=== PATIENT | male | born 1965 | race Caucasian/White ===

== ENCOUNTER → 2018-04-08 09:31 | Outpatient (CLI) | payer OTHER, SELFPAY ==
[2018-04-08 10:06] LABS: Add Manual Diff / Slide Review NO; Basophils Percent Auto 0.6 % (0-2); Eosinophils Percent Auto 4.9 % (2-4); Hematocrit 38.6 % (41-53); Hemoglobin 12.6 g/dL (13.5-17.5); Lymphocytes Percent Auto 30.4 % (25-40); Mean Corpuscular HGB Conc 32.6 % (30-36); Mean Corpuscular Hemoglobin 25.6 PG (26-34); Mean Corpuscular Volume 78.6 fL (80-100); Monocytes Percent Auto 5.9 % (3-14); Neutrophils Absolute Auto 6000 /uL (3000-5900); Neutrophils Percent Auto 58.2 % (50-75); Platelet Count 309 X10^3/uL (150-400); Red Blood Cell Count 4.91 X10^6/uL (4.5-5.9); Red Cell Distribution Width 14.7 % (11.6-14.8); White Blood Cell Count 10.3 X10^3/uL (4.5-11.0)
[2018-04-08 10:20] LABS: Hemoglobin A1C% w Est Avg Glu 8.9 % (4.0-6.0)
[2018-04-08 10:37] LABS: Creatinine Urine Random 139.5 mg/dL
[2018-04-08 10:42] LABS: Alanine Aminotransferase 29 IU/L (21-72); Albumin 3.9 g/dL (3.5-5.0); Albumin Globulin Ratio 1.3 (1.0-2.8); Alkaline Phosphatase 50 U/L (38-126); Aspartate Aminotransferase 32 IU/L (17-59); BUN Creatinine Ratio 23.3 (6-22); Bilirubin Total 0.3 mg/dL (0.2-1.3); Cholesterol 139 mg/dL (140-199); Estimated Glomerular Filt Rate > 60.0 mL/min (>60); Globulin 3.1 g/dL (1.7-4.1); Glucose 114 mg/dL (70-100); HDL Cholesterol 35 mg/dL (40-60); HEMOLYSIS < 15 (0-50); LDL Cholesterol Calculated 83 mg/dL (<100); Sodium 141 mmol/L (137-145); Triglycerides 103 mg/dL (35-150)
[2018-04-08 11:05] LABS: Microalbumi Creatinin Ratio Ur 294.6 ug/mg CR (<30); Microalbumin Urine Random 41.1 mg/dL (0-1.6)
== END ==
PROVIDERS: PCP Family Medicine; Visit Provider Family Medicine
DX: I10 Essential (primary) hypertension (principal); E78.00 Pure hypercholesterolemia, unspecified; E11.9 Type 2 diabetes mellitus without complications; Z79.4 Long term (current) use of insulin
CPT/HCPCS: 36415; 80053; 80061; 82043; 82570; 83036; 85025

== ENCOUNTER 2019-01-29 14:26 | Emergency (ER) | payer OTHER, SELFPAY ==
[2019-01-29 14:37] VITALS: BP 171/70; PULSE 109; RESP 18; TEMP 38.8; O2SAT 97; BMI 44.6
--- NOTE | 2019-01-29 14:37 | DI.US.S_ITS ---
PROCEDURE: US PERIPH VENOUS LOW EXTREM RT INDICATIONS: PAIN, ERYTHEMA TECHNIQUE: Real-time imaging, as well as color and pulse Doppler interrogation, were performed of the lower extremity deep veins from the inguinal ligament to the popliteal fossa. COMPARISON: None. FINDINGS: The common femoral, femoral and popliteal veins are normally compressible, and free of intraluminal thrombus. Color and pulse Doppler demonstrate normal phasic intraluminal flow. There is normal augmentation response to distal compression maneuver. IMPRESSION: No evidence of deep vein thrombosis involving the right lower extremity. Dictated by: Chanell Villalobos MD, PhD on 01/29/2019 at 15:16 Approved by: Chanell Villalobos MD, PhD on 01/29/2019 at 15:16
--- NOTE | 2019-01-29 15:24 | ED.EXTPRO ---
HPI - Extremity Problem General Chief complaint: Extremity Problem,Nontraumatic Stated complaint: feels like there is a blood clot in lt leg,red,swe Time Seen by Provider: 01/29/19 15:24 Source: patient, family and old records reviewed Mode of arrival: ambulatory Limitations: no limitations History of Present Illness HPI Narrative: This is a 53-year-old comes to the emergency department complaint of redness, pain or discomfort in his right lower extremity starting yesterday patient states today he noted that he had fever he has here in the emergency department as well. Patient states the redness extends from his foot. Patient denies any cold cough or congestion. He does not recall having any injuries or cuts to his lower extremity. He states that the redness seems to be over kind of the dorsum of his foot a little bit mostly the ankle and up towards the knee. Patient states he initially thought he had a DVT he has followup some shortness of breath particularly with exertion. He does not have any chest pain pressure. Little bit nausea yesterday, no vomiting, no diarrhea or constipation. No urinary issues. Patient is a diabetic he states he is on insulin as well as medications. Also takes medication for blood pressure and cholesterol. Related Data Home Medications Medication Instructions Recorded Confirmed ResMed AirSense 10 CPAP #1 ea 01/05/19 01/21/19 aspirin 81 mg chewable tablet 81 mg PO DAILY 01/21/19 Previous Rx's Medication Instructions Recorded metformin [Glucophage XR] 2 tab PO BID #360 tab 02/26/18 Syringes: 1cc Insulin Syringes #100 each 04/16/18 with [place] blood glucose machine #1 ea 06/07/18 glipizide 20 mg PO QDAY #180 tab 08/09/18 bd inulin pen needles [id number] See Rx Instructions .ROUTE 09/07/18 .COMPLEX #100 hydrochlorothiazide 12.5 mg tablet 12.5 mg PO QDAY #90 tab 10/26/18 lisinopril 20 mg tablet 20 mg PO QDAY #30 tab 11/10/18 insulin aspart U- 100 100 unit/mL 30 unit SUBCUT TID #15 ml 11/29/18 subcutaneous pen Glucose: Test Strips #100 each 12/06/18 atorvastatin 40 mg tablet 40 mg PO HS #90 tab 01/21/19 ferrous sulfate 325 mg (65 mg 325 mg PO DAILY #180 tab 01/21/19 iron) tablet insulin glargine (U- 100) 100 60 unit SUBCUT BEDTIME #6 vial 01/21/19 unit/mL subcutaneous solution clindamycin HCl 300 mg PO QID #40 cap 01/29/19 Allergies Allergy/AdvReac Type Severity Reaction Status Date / Time No Known Drug Allergies Allergy Verified 01/21/19 10:22 Review of Systems Review of Systems ROS Unobtainable: All systems reviewed & are unremarkable except as noted in HPI and below Constitutional Denies chills, Reports fever(s), Denies lethargy and Denies weakness ENT Ears, Nose, Mouth, and Throat: Denies nasal congestion Cardiovascular Denies chest pain, Denies diaphoresis, Denies syncope, Denies irregular heart rhythm, Denies lightheadedness, Denies palpitations, Denies dyspnea, Reports dyspnea on exertion and Denies orthopnea Respiratory Denies chest congestion, Denies cough, Denies excessive phlegm production, Denies pain on inspiration, Denies dyspnea, Reports dyspnea on exertion and Denies wheezing Gastrointestinal Gastrointestinal: Denies abdominal pain, Denies change in bowel habits, Denies diarrhea, Reports nausea and Denies vomiting Genitourinary Denies hematuria, Denies dysuria, Denies flank pain and Denies urinary urgency Musculoskeletal Reports as per HPI, Denies arthralgias, Denies joint swelling, Denies muscle weakness, Reports numbness (Neuropathy both feet) and Reports other (Right leg pain) Integumentary/Breasts Reports erythema Neurologic Denies syncope, Reports numbness (Neuropathy both feet) and Denies weakness Endocrine Denies palpitations Allergic/Immunologic Denies wheezing [facility] Medical History Morbid obesity with BMI of 45.0-49.9, adult (Chronic) Obstructive sleep apnea syndrome (Chronic 11/28/16) Diabetes (Chronic 1989) Hypercholesterolemia (Chronic Unknown) Hypertension (Chronic 2015) Low testosterone (Chronic Unknown) Sleep apnea (Chronic 2009) Social History marital status: details: zac Garcia, lives in [place]; has 1 daughter remaining at home household members: spouse and children lives independently: Yes caregiver/support person: No housing: house occupational status: employed Previous occupational history: Environmental Services Smoking Status: Former smoker quit status: quit date established alcohol intake: current substance use type: does not use Social History marital status: details: zac Garcia, lives in [place]; has 1 daughter remaining at home household members: spouse and children lives independently: Yes caregiver/support person: No housing: house occupational status: employed Previous occupational history: Environmental Services Smoking Status: Former smoker quit status: quit date established alcohol intake: current substance use type: does not use Exam Narrative Exam Narrative: GENERAL: Alert and oriented x three, obese, well-appearing male in mild distress. Patient is warm to the touch. HEENT: Head normocephalic, atraumatic, EOMI, pupils reactive, face symmetric, moist mucous membranes NECK: Supple, full range of motion CARDIOVASCULAR: Regular rate and rhythm without murmurs, rubs or gallops. RESPIRATORY: Breath sounds equal bilaterally, no wheezes rales or rhonchi. No tachypnea no accessory muscle ABDOMEN: Soft, nontender. Normoactive bowel sounds all 4 quadrants. No guarding or rebound, rigidity, no mass : No CVA tenderness EXTREMITIES: Normal range of motion, no clubbing. Patient has redness with warmth to the right lower extremity and a half from the top of the foot. Patient has edema bilaterally but appears equal. The patient has touch to sensation but does state that he has decreased sensation in the lower feet in comparison to the rest of his legs. He states he has known neuropathy. He has full range of motion. He does have some onychomycosis on his toenails. Eyes cap refill less than 2 sec in all toes. Neurovascularly intact NEUROLOGICAL: Cranial nerves II through XII grossly intact. Moving all extremities SKIN: Warm, dry, no petechiae, no rashes or lesions. Initial Vital Signs Initial Vital Signs: Vital Signs Temperature 102 F H 01/29/19 14:37 Pulse Rate 109 H 01/29/19 14:37 Respiratory Rate 18 01/29/19 14:37 Blood Pressure 171/70 H 01/29/19 14:37 Pulse Oximetry 97 01/29/19 14:37 Course Orders Ordered: ED Orders 01/29/19 14:37 US periph venous low extrem rt Stat 01/29/19 15:50 Bilirubin Total Stat Complete Blood Count AUTO DIFF Stat Comprehensive Metabolic Panel Stat Lactate (Lactic Acid) Stat Partial Thromboplastin Time Stat Procalcitonin Stat Prothrombin Time INR Stat 01/29/19 16:50 Blood Culture Stat Discontinued Medications Acetaminophen (Tylenol) 975 mg PO NOW ONE Stop: 01/29/19 15:27 Last Admin: 01/29/19 16:01 Dose: 975 mg Clindamycin HCl (Cleocin) 300 mg PO NOW ONE Stop: 01/29/19 18:05 Last Admin: 01/29/19 18:12 Dose: 300 mg Clindamycin Phosphate (Cleocin) 900 mg in 50 mls @ 50 mls/hr IV NOW ONE Stop: 01/29/19 16:47 Last Infusion: 01/29/19 17:59 Dose: 0 mls/hr Admin: 01/29/19 16:01 Dose: 50 mls/hr Sodium Chloride (Normal Saline 0.9%) 1,000 mls @ 1,000 mls/hr IV BOLUS ONE Stop: 01/29/19 16:47 Last Admin: 01/29/19 16:01 Dose: 1,000 mls/hr Ibuprofen (Advil) 800 mg PO NOW ONE Stop: 01/29/19 15:27 Last Admin: 01/29/19 16:32 Dose: 800 mg Vital Signs - 8 hr 01/29/19 14:37 01/29/19 16:01 01/29/19 17:32 Temperature 102 F H 102 F H 97.8 F Pulse Rate 109 H Respiratory Rate 18 Blood Pressure 171/70 H Blood Pressure [Left Arm] Pulse Oximetry 97 01/29/19 17:48 01/29/19 17:59 Temperature 97.6 F Pulse Rate 91 H Respiratory Rate 16 Blood Pressure Blood Pressure [Left Arm] 102/57 L Pulse Oximetry 97 MDM - Extremity (Nontraumatic) Lab Data Attestation: I reviewed the patient's lab results. Result diagrams: 01/29/19 15:50 01/29/19 15:50 Lab Results 01/29/19 01/29/19 01/29/19 Range/Units 15:50 15:50 15:50 WBC 16.3 H (4.5-11.0) X10^3/uL RBC 4.97 (4.5-5.9) X10^6/uL Hgb 12.8 L (13.5-17.5) g/dL Hct 39.8 L (41-53) % MCV 80.1 (80-100) fL MCH 25.8 L (26-34) PG MCHC 32.2 (30-36) % RDW 15.0 H (11.6-14.8) % Plt Count 301 (150-400) X10^3/uL Neut % (Auto) 82.2 H (50-75) % Lymph % (Auto) 11.0 L (25-40) % [place] % (Auto) 5.6 (3-14) % Eos % (Auto) 0.5 L (2-4) % Baso % (Auto) 0.7 (0-2) % Neut # (Auto) 39127 H (9660-3508) /uL Lymph # (Auto) 1800 (4563-7966) /uL [place] # (Auto) 900 (0-900) /uL Eos # (Auto) 100 (0-450) /uL Baso # (Auto) 100 (0-100) /uL PT 12.0 (10.1-12.7) SECONDS INR 1.0 (0.9-1.3) APTT 34 (26.4-36.2) SECONDS Sodium Cancelled Potassium Cancelled Chloride Cancelled Carbon Dioxide Cancelled BUN Cancelled Creatinine Cancelled Estimated GFR Cancelled BUN/Creatinine Ratio Cancelled Glucose Cancelled Lactate (0.7-2.1) mmol/L Calcium Cancelled Total Bilirubin 0.8 (0.2-1.3) mg/dL AST (17-59) IU/L ALT (21-72) IU/L Alkaline Phosphatase (38-126) U/L Total Protein (6.3-8.2) g/dL Albumin (3.5-5.0) g/dL Globulin (1.7-4.1) g/dL Albumin/Globulin Ratio (1.0-2.8) Procalcitonin (<0.5) ng/mL Specimen Hemolysis Cancelled 01/29/19 01/29/19 01/29/19 Range/Units 15:50 15:50 15:50 WBC (4.5-11.0) X10^3/uL RBC (4.5-5.9) X10^6/uL Hgb (13.5-17.5) g/dL Hct (41-53) % MCV (80-100) fL MCH (26-34) PG MCHC (30-36) % RDW (11.6-14.8) % Plt Count (150-400) X10^3/uL Neut % (Auto) (50-75) % Lymph % (Auto) (25-40) % [place] % (Auto) (3-14) % Eos % (Auto) (2-4) % Baso % (Auto) (0-2) % Neut # (Auto) (4760-8025) /uL Lymph # (Auto) (2285-0643) /uL [place] # (Auto) (0-900) /uL Eos # (Auto) (0-450) /uL Baso # (Auto) (0-100) /uL PT (10.1-12.7) SECONDS INR (0.9-1.3) APTT (26.4-36.2) SECONDS Sodium 134 L Potassium 4.1 Chloride 95 L Carbon Dioxide 27 BUN 16 Creatinine 0.80 Estimated GFR > 60.0 BUN/Creatinine Ratio 20.0 Glucose 212 H Lactate 1.2 (0.7-2.1) mmol/L Calcium 9.2 Total Bilirubin 0.8 (0.2-1.3) mg/dL AST 27 (17-59) IU/L ALT 31 (21-72) IU/L Alkaline Phosphatase 58 (38-126) U/L Total Protein 8.3 H (6.3-8.2) g/dL Albumin 4.5 (3.5-5.0) g/dL Globulin 3.8 (1.7-4.1) g/dL Albumin/Globulin Ratio 1.2 (1.0-2.8) Procalcitonin 0.32 (<0.5) ng/mL Specimen Hemolysis Imaging Data Venous US: Radiologist's impression: [address] [address] Ultrasound Report Signed Patient: Ritchie Fermin JMR#: [id number] : 1965Acct:[id number] Age/Sex: 53 / MDate of Service: 01/29/19 Loc: ED Accession Number: [id number] Procedure: US periph venous low extrem rt Ordering Provider: Araceli Ulloa- PROCEDURE: US PERIPH VENOUS LOW EXTREM RT INDICATIONS: PAIN, ERYTHEMA TECHNIQUE: Real-time imaging, as well as color and pulse Doppler interrogation, were performed of the lower extremity deep veins from the inguinal ligament to the popliteal fossa. COMPARISON: None. FINDINGS: The common femoral, femoral and popliteal veins are normally compressible, and free of intraluminal thrombus. Color and pulse Doppler demonstrate normal phasic intraluminal flow. There is normal augmentation response to distal compression maneuver. IMPRESSION: No evidence of deep vein thrombosis involving the right lower extremity. Dictated by: Chanell Villalobos MD, PhD on 01/29/2019 at 15:16 Approved by: Chanell Villalobos MD, PhD on 01/29/2019 at 15:16 [facility] Narrative Medical decision making narrative: this is a 53-year-old who said his cellulitis and concerning changes for sepsis and his vital signs as well as lab work. Patient has cellulitis of his right lower extremity, he was started on clindamycin. Blood cultures are pending. Lactate is not elevated but patient had a fever initially elevated heart rate in the 90s and white count of 16. discussed with patient I would like to keep for admission he is pretty adamant that he would like to not be admitted. We discussed having him return in 12 hr for re-evaluation. Patient is open to doing this. He was given a dose of oral clindamycin to take at home tonight and told he needs to return if he is having any worsening symptoms or increasing redness over his lower extremity. He is with his he is well-known to us through the facility and does appear to be a responsible decision maker. We did discuss that if he gets any worse that although he does need to return immediately to be admitted. Discharge Plan Departure Patient Disposition: Home Clinical Impression: Cellulitis of leg, right Interventions: ED Discharge Assessment Last Done: 01/29/19 18:21 Instructions: DI for Cellulitis -- Adult Activity Restrictions/Additional Instructions: Return in 12 hours for recheck and repeat antibiotics and recheck. Continue clindamycin as prescribed. Take this until completely gone. Return to the ER for persistent fevers, increasing swelling, redness that is extending up your leg, nausea or vomiting if you are unable to keep your medications down, new shortness of breath or chest pain or other new or concerning symptoms. Prescriptions: New clindamycin HCl 300 mg capsule 300 mg PO QID Qty: 40 RF: 0 No Action metformin [Glucophage XR] 500 MG tablet extended release 24 hr 2 tab PO BID Qty: 360 RF: 6 Syringes: 1cc Insulin Syringes with [place] .Route .MEDSUPPLY Qty: 100 RF: 3 blood glucose machine Qty: 1 RF: 0 glipizide 10 mg tablet extended release 24hr 20 mg PO QDAY Qty: 180 RF: 6 bd inulin pen needles [id number] See Rx Instructions .ROUTE .COMPLEX Qty: 100 RF: 3 hydrochlorothiazide 12.5 mg tablet 12.5 mg PO QDAY Qty: 90 RF: 1 lisinopril 20 mg tablet 20 mg PO QDAY Qty: 30 RF: 5 insulin aspart U-100 [Novolog Flexpen U-100 Insulin] 100 unit/mL insulin pen 30 unit SUBCUT TID Qty: 15 RF: 5 Glucose: Test Strips .Route .MEDSUPPLY Qty: 100 RF: 3 Lantus U-100 Insulin 100 unit/mL solution 60 unit SUBCUT BEDTIME Qty: 6 RF: 11 aspirin 81 mg tablet,chewable 81 mg PO DAILY RF: 0 atorvastatin 40 mg tablet 40 mg PO HS Qty: 90 RF: 3 ferrous sulfate [Iron (ferrous sulfate)] 325 mg (65 mg iron) tablet 325 mg PO DAILY Qty: 180 RF: 6 ResMed AirSense 10 CPAP Qty: 1 RF: 0 Referrals: Rich Ledezma MD [Primary Care Provider] -
--- NOTE | 2019-01-29 15:56 | ED_ITS ---
HPI - Extremity Problem General Chief complaint: Extremity Problem,Nontraumatic Stated complaint: feels like there is a blood clot in lt leg,red,swe Time Seen by Provider: 01/29/19 15:24 Source: patient, family and old records reviewed Mode of arrival: ambulatory Limitations: no limitations History of Present Illness HPI Narrative: This is a 53-year-old comes to the emergency department complaint of redness, pain or discomfort in his right lower extremity starting yesterday patient states today he noted that he had fever he has here in the emergency department as well. Patient states the redness extends from his foot. Patient denies any cold cough or congestion. He does not recall having any injuries or cuts to his lower extremity. He states that the redness seems to be over kind of the dorsum of his foot a little bit mostly the ankle and up towards the knee. Patient states he initially thought he had a DVT he has followup some shortness of breath particularly with exertion. He does not have any chest pain pressure. Little bit nausea yesterday, no vomiting, no diarrhea or constipation. No uri nary issues. Patient is a diabetic he states he is on insulin as well as medications. Also takes medication for blood pressure and cholesterol. Related Data Home Medications Medication Instructions Recorded Confirmed ResMed AirSense 10 CPAP #1 ea 01/05/19 01/21/19 aspirin 81 mg chewable tablet 81 mg PO DAILY 01/21/19 Previous Rx's Medication Instructions Recorded metformin [Glucophage XR] 2 tab PO BID #360 tab 02/26/18 Syringes: 1cc Insulin Syringes #100 each 04/16/18 with [facility] blood glucose machine #1 ea 06/07/18 glipizide 20 mg PO QDAY #180 tab 08/09/18 bd inulin pen needles [id number] See Rx Instructions .ROUTE 09/07/18 .COMPLEX #100 hydrochlorothiazide 12.5 mg tablet 12.5 mg PO QDAY #90 tab 10/26/18 lisinopril 20 mg tablet 20 mg PO QDAY #30 tab 11/10/18 insulin aspart U- 100 100 unit/mL 30 unit SUBCUT TID #15 ml 11/29/18 subcutaneous pen Glucose: Test Strips #100 each 12/06/18 atorvastatin 40 mg tablet 40 mg PO HS #90 tab 01/21/19 ferrous sulfate 325 mg (65 mg 325 mg PO DAILY #180 tab 01/21/19 iron) tablet insulin glargine (U- 100) 100 60 unit SUBCUT BEDTIME #6 vial 01/21/19 unit/mL subcutaneous solution clindamycin HCl 300 mg PO QID #40 cap 01/29/19 Allergies Allergy/AdvReac Type Severity Reaction Status Date / Time No Known Drug Allergies Allergy Verified 01/21/19 10:22 Review of Systems Review of Systems ROS Unobtainable: All systems reviewed & are unremarkable except as noted in HPI and below Constitutional Denies chills, Reports fever(s), Denies lethargy and Denies weakness ENT Ears, Nose, Mouth, and Throat: Denies nasal congestion Cardiovascular Denies chest pain, Denies diaphoresis, Denies syncope, Denies irregular heart rhythm, Denies lightheadedness, Denies palpitations, Denies dyspnea, Reports dyspnea on exertion and Denies orthopnea Respiratory Denies chest congestion, Denies cough, Denies excessive phlegm production, Denies pain on inspiration, Denies dyspnea, Reports dyspnea on exertion and Denies wheezing Gastrointestinal Gastrointestinal: Denies abdominal pain, Denies change in bowel habits, Denies diarrhea, Reports nausea and Denies vomiting Genitourinary Denies hematuria, Denies dysuria, Denies flank pain and Denies urinary urgency Musculoskeletal Reports as per HPI, Denies arthralgias, Denies joint swelling, Denies muscle weakness, Reports numbness (Neuropathy both feet) and Reports other (Right leg pain) Integumentary/Breasts Reports erythema Neurologic Denies syncope, Reports numbness (Neuropathy both feet) and Denies weakness Endocrine Denies palpitations Allergic/Immunologic Denies wheezing [facility] Medical History Morbid obesity with BMI of 45.0-49.9, adult (Chronic) Obstructive sleep apnea syndrome (Chronic 11/28/16) Diabetes (Chronic 1989) Hypercholesterolemia (Chronic Unknown) Hypertension (Chronic 2015) Low testosterone (Chronic Unknown) Sleep apnea (Chronic 2009) Social History marital status: details: zac Garcia, lives in [place]; has 1 daughter remaining at home household members: spouse and children lives independently: Yes caregiver/support person: No housing: house occupational status: employed Previous occupational history: Environmental Services Smoking Status: Former smoker quit status: quit date established alcohol intake: current substance use type: does not use Social History marital status: details: zac Garcia, lives in [place]; has 1 daughter remaining at home household members: spouse and children lives independently: Yes caregiver/support person: No housing: house occupational status: employed Previous occupational history: Environmental Services Smoking Status: Former smoker quit status: quit date established alcohol intake: current substance use type: does not use Exam Narrative Exam Narrative: GENERAL: Alert and oriented x three, obese, well-appearing male in mild distress. Patient is warm to the touch. HEENT: Head normocephalic, atraumatic, EOMI, pupils reactive, face symmetric, moist mucous membranes NECK: Supple, full range of motion CARDIOVASCULAR: Regular rate and rhythm without murmurs, rubs or gallops. RESPIRATORY: Breath sounds equal bilaterally, no wheezes rales or rhonchi. No tachypnea no accessory muscle ABDOMEN: Soft, nontender. Normoactive bowel sounds all 4 quadrants. No guarding or rebound, rigidity, no mass : No CVA tenderness EXTREMITIES: Normal range of motion, no clubbing. Patient has redness with warmth to the right lower extremity and a half from the top of the foot. Patient has edema bilaterally but appears equal. The patient has touch to sensat ion but does state that he has decreased sensation in the lower feet in comparison to the rest of his legs. He states he has known neuropathy. He has full range of motion. He does have some onychomycosis on his toenails. Eyes cap refill less than 2 sec in all toes. Neurovascularly intact NEUROLOGICAL: Cranial nerves II through XII grossly intact. Moving all extremities SKIN: Warm, dry, no petechiae, no rashes or lesions. Initial Vital Signs Initial Vital Signs: Vital Signs Temperature 102 F H 01/29/19 14:37 Pulse Rate 109 H 01/29/19 14:37 Respiratory Rate 18 01/29/19 14:37 Blood Pressure 171/70 H 01/29/19 14:37 Pulse Oximetry 97 01/29/19 14:37 Course Orders Ordered: ED Orders 01/29/19 14:37 US periph venous low extrem rt Stat 01/29/19 15:50 Bilirubin Total Stat Complete Blood Count AUTO DIFF Stat Comprehensive Metabolic Panel Stat Lactate (Lactic Acid) Stat Partial Thromboplastin Time Stat Procalcitonin Stat Prothrombin Time INR Stat 01/29/19 16:50 Blood Culture Stat Discontinued Medications Acetaminophen (Tylenol) 975 mg PO NOW ONE Stop: 01/29/19 15:27 Last Admin: 01/29/19 16:01 Dose: 975 mg Clindamycin HCl (Cleocin) 300 mg PO NOW ONE Stop: 01/29/19 18:05 Last Admin: 01/29/19 18:12 Dose: 300 mg Clindamycin Phosphate (Cleocin) 900 mg in 50 mls @ 50 mls/hr IV NOW ONE Stop: 01/29/19 16:47 Last Infusion: 01/29/19 17:59 Dose: 0 mls/hr Admin: 01/29/19 16:01 Dose: 50 mls/hr Sodium Chloride (Normal Saline 0.9%) 1,000 mls @ 1,000 mls/hr IV BOLUS ONE Stop: 01/29/19 16:47 Last Admin: 01/29/19 16:01 Dose: 1,000 mls/hr Ibuprofen (Advil) 800 mg PO NOW ONE Stop: 01/29/19 15:27 Last Admin: 01/29/19 16:32 Dose: 800 mg Vital Signs - 8 hr 01/29/19 14:37 01/29/19 16:01 01/29/19 17:32 Temperature 102 F H 102 F H 97.8 F Pulse Rate 109 H Respiratory Rate 18 Blood Pressure 171/70 H Blood Pressure [Left Arm] Pulse Oximetry 97 01/29/19 17:48 01/29/19 17:59 Temperature 97.6 F Pulse Rate 91 H Respiratory Rate 16 Blood Pressure Blood Pressure [Left Arm] 102/57 L Pulse Oximetry 97 MDM - Extremity (Nontraumatic) Lab Data Attestation: I reviewed the patient's lab results. Result diagrams: 01/29/19 15:50 01/29/19 15:50 Lab Results 01/29/19 01/29/19 01/29/19 Range/Units 15:50 15:50 15:50 WBC 16.3 H (4.5-11.0) X10^3/uL RBC 4.97 (4.5-5.9) X10^6/uL Hgb 12.8 L (13.5-17.5) g/dL Hct 39.8 L (41-53) % MCV 80.1 (80-100) fL MCH 25.8 L (26-34) PG MCHC 32.2 (30-36) % RDW 15.0 H (11.6-14.8) % Plt Count 301 (150-400) X10^3/uL Neut % (Auto) 82.2 H (50-75) % Lymph % (Auto) 11.0 L (25-40) % [place] % (Auto) 5.6 (3-14) % Eos % (Auto) 0.5 L (2-4) % Baso % (Auto) 0.7 (0-2) % Neut # (Auto) 87126 H (4920-6871) /uL Lymph # (Auto) 1800 (3665-9704) /uL [place] # (Auto) 900 (0-900) /uL Eos # (Auto) 100 (0-450) /uL Baso # (Auto) 100 (0-100) /uL PT 12.0 (10.1-12.7) SECONDS INR 1.0 (0.9-1.3) APTT 34 (26.4-36.2) SECONDS Sodium Cancelled Potassium Cancelled Chloride Cancelled Carbon Dioxide Cancelled BUN Cancelled Creatinine Cancelled Estimated GFR Cancelled BUN/Creatinine Ratio Cancelled Glucose Cancelled Lactate (0.7-2.1) mmol/L Calcium Cancelled Total Bilirubin 0.8 (0.2-1.3) mg/dL AST (17-59) IU/L ALT (21-72) IU/L Alkaline Phosphatase (38-126) U/L Total Protein (6.3-8.2) g/dL Albumin (3.5-5.0) g/dL Globulin (1.7-4.1) g/dL Albumin/Globulin Ratio (1.0-2.8) Procalcitonin (<0.5) ng/mL Specimen Hemolysis Cancelled 01/29/19 01/29/19 01/29/19 Range/Units 15:50 15:50 15:50 WBC (4.5-11.0) X10^3/uL RBC (4.5-5.9) X10^6/uL Hgb (13.5-17.5) g/dL Hct (41-53) % MCV (80-100) fL MCH (26-34) PG MCHC (30-36) % RDW (11.6-14.8) % Plt Count (150-400) X10^3/uL Neut % (Auto) (50-75) % Lymph % (Auto) (25-40) % Oldham % (Auto) (3-14) % Eos % (Auto) (2-4) % Baso % (Auto) (0-2) % Neut # (Auto) (2319-3506) /uL Lymph # (Auto) (8931-7322) /uL Oldham # (Auto) (0-900) /uL Eos # (Auto) (0-450) /uL Baso # (Auto) (0-100) /uL PT (10.1-12.7) SECONDS INR (0.9-1.3) APTT (26.4-36.2) SECONDS Sodium 134 L Potassium 4.1 Chloride 95 L Carbon Dioxide 27 BUN 16 Creatinine 0.80 Estimated GFR > 60.0 BUN/Creatinine Ratio 20.0 Glucose 212 H Lactate 1.2 (0.7-2.1) mmol/L Calcium 9.2 Total Bilirubin 0.8 (0.2-1.3) mg/dL AST 27 (17-59) IU/L ALT 31 (21-72) IU/L Alkaline Phosphatase 58 (38-126) U/L Total Protein 8.3 H (6.3-8.2) g/dL Albumin 4.5 (3.5-5.0) g/dL Globulin 3.8 (1.7-4.1) g/dL Albumin/Globulin Ratio 1.2 (1.0-2.8) Procalcitonin 0.32 (<0.5) ng/mL Specimen Hemolysis Imaging Data Venous US: Radiologist's impression: [address] [address] Ultrasound Report Signed Patient: Ritchie Fermin JMR#: [id number] : 1965Acct:[id number] Age/Sex: 53 / MDate of Service: 01/29/19 Loc: ED Accession Number: [id number] Procedure: US periph venous low extrem rt Ordering Provider: Araceli Ulloa- PROCEDURE: US PERIPH VENOUS LOW EXTREM RT INDICATIONS: PAIN, ERYTHEMA TECHNIQUE: Real-time imaging, as well as color and pulse Doppler interrogation, were performed of the lower extremity deep veins from the inguinal ligament to the popliteal fossa. COMPARISON: None. FINDINGS: The common femoral, femoral and popliteal veins are normally compressible, and free of intraluminal thrombus. Color and pulse Doppler demonstrate normal phasic intraluminal flow. There is normal augmentation response to distal compression maneuver. IMPRESSION: No evidence of deep vein thrombosis involving the right lower extremity. Dictated by: Chanell Villalobos MD, PhD on 01/29/2019 at 15:16 Approved by: Chanell Villalobos MD, PhD on 01/29/2019 at 15:16 [facility] Narrative Medical decision making narrative: this is a 53-year-old who said his cellulitis and concerning changes for sepsis and his vital signs as well as lab work. Patient has cellulitis of his right lower extremity, he was started on clindamycin. Blood cultures are pending. Lactate is not elevated but patient had a fever initially elevated heart rate in the 90s and white count of 16. discussed with patient I would like to keep for admission he is pretty adamant that he would like to not be admitted. We discussed having him return in 12 hr for re-evaluation. Patient is open to doing this. He was given a dose of oral clindamycin to take at home tonight and told he needs to return if he is having any worsening symptoms or increasing redness over his lower extremity. He is with his he is well-known to us through the facility and does appear to be a responsible decision maker. We did discuss that if he gets any worse that al though he does need to return immediately to be admitted. Discharge Plan Departure Patient Disposition: Home Clinical Impression: Cellulitis of leg, right Interventions: ED Discharge Assessment Last Done: 01/29/19 18:21 Instructions: DI for Cellulitis -- Adult Activity Restrictions/Additional Instructions: Return in 12 hours for recheck and repeat antibiotics and recheck. Continue clindamycin as prescribed. Take this until completely gone. Return to the ER for persistent fevers, increasing swelling, redness that is extending up your leg, nausea or vomiting if you are unable to keep your medications down, new shortness of breath or chest pain or other new or concerning symptoms. Prescriptions: New clindamycin HCl 300 mg capsule 300 mg PO QID Qty: 40 RF: 0 No Action metformin [Glucophage XR] 500 MG tablet extended release 24 hr 2 tab PO BID Qty: 360 RF: 6 Syringes: 1cc Insulin Syringes with [facility] .Route .MEDSUPPLY Qty: 100 RF: 3 blood glucose machine Qty: 1 RF: 0 glipizide 10 mg tablet extended release 24hr 20 mg PO QDAY Qty: 180 RF: 6 bd inulin pen needles [id number] See Rx Instructions .ROUTE .COMPLEX Qty: 100 RF: 3 hydrochlorothiazide 12.5 mg tablet 12.5 mg PO QDAY Qty: 90 RF: 1 lisinopril 20 mg tablet 20 mg PO QDAY Qty: 30 RF: 5 insulin aspart U-100 [Novolog Flexpen U-100 Insulin] 100 unit/mL insulin pen 30 unit SUBCUT TID Qty: 15 RF: 5 Glucose: Test Strips .Route .MEDSUPPLY Qty: 100 RF: 3 Lantus U-100 Insulin 100 unit/mL solution 60 unit SUBCUT BEDTIME Qty: 6 RF: 11 aspirin 81 mg tablet,chewable 81 mg PO DAILY RF: 0 atorvastatin 40 mg tablet 40 mg PO HS Qty: 90 RF: 3 ferrous sulfate [Iron (ferrous sulfate)] 325 mg (65 mg iron) tablet 325 mg PO DAILY Qty: 180 RF: 6 ResMed AirSense 10 CPAP Qty: 1 RF: 0 Referrals: Rich Ledezma MD [Primary Care Provider] -
[2019-01-29 16:01] VITALS: TEMP 38.8
[2019-01-29] MEDS: CLINDAMYCIN 900 MG/50 ML PIGGYBACK 50 MG IV (16:01)
[2019-01-29] MEDS: ACETAMINOPHEN 325 MG TABLET 975 MG PO (16:01)
[2019-01-29] MEDS: SODIUM CHLORIDE 0.9% 1,000 ML 1000 ML IV (16:01)
[2019-01-29 16:05] LABS: Add Manual Diff / Slide Review NO; Basophils Absolute Auto 100 /uL (0-100); Basophils Percent Auto 0.7 % (0-2); Eosinophils Absolute Auto 100 /uL (0-450); Eosinophils Percent Auto 0.5 % (2-4); Hematocrit 39.8 % (41-53); Hemoglobin 12.8 g/dL (13.5-17.5); Lymphocytes Absolute Auto 1800 /uL (1100-4500); Mean Corpuscular HGB Conc 32.2 % (30-36); Mean Corpuscular Hemoglobin 25.8 PG (26-34); Mean Corpuscular Volume 80.1 fL (80-100); Monocytes Absolute Auto 900 /uL (0-900); Monocytes Percent Auto 5.6 % (3-14); Neutrophils Absolute Auto 13400 /uL (1500-7000); Neutrophils Percent Auto 82.2 % (50-75); Platelet Count 301 X10^3/uL (150-400); Red Blood Cell Count 4.97 X10^6/uL (4.5-5.9); White Blood Cell Count 16.3 X10^3/uL (4.5-11.0)
[2019-01-29 16:15] LABS: PTT Partial Thromboplastin Tim 34 SECONDS (26.4-36.2)
[2019-01-29 16:16] LABS: Lactate (Lactic Acid) 1.2 mmol/L (0.7-2.1)
[2019-01-29 16:17] LABS: Bilirubin Total 0.8 mg/dL (0.2-1.3)
[2019-01-29 16:21] LABS: Alanine Aminotransferase 31 IU/L (21-72); Albumin 4.5 g/dL (3.5-5.0); Albumin Globulin Ratio 1.2 (1.0-2.8); Alkaline Phosphatase 58 U/L (38-126); Aspartate Aminotransferase 27 IU/L (17-59); Bilirubin Total 0.8 mg/dL (0.2-1.3); Blood Urea Nitrogen 16 mg/dL (9-20); Calcium 9.2 mg/dL (8.4-10.2); Carbon Dioxide 27 mmol/L (22-32); Chloride 95 mmol/L (98-107); Estimated Glomerular Filt Rate > 60.0 mL/min (>60); Globulin 3.8 g/dL (1.7-4.1); Glucose 212 mg/dL (70-100); HEMOLYSIS < 15 (0-50); Potassium 4.1 mmol/L (3.4-5.1); Sodium 134 mmol/L (137-145); Total Protein 8.3 g/dL (6.3-8.2)
[2019-01-29] MEDS: IBUPROFEN 400 MG TABLET 800 MG PO (16:32)
[2019-01-29 16:46] LABS: Procalcitonin 0.32 ng/mL (<0.5)
[2019-01-29 17:32] VITALS: TEMP 36.6
[2019-01-29 17:48] VITALS: BP 102/57; PULSE 91; RESP 16; O2SAT 97
[2019-01-29 17:59] VITALS: TEMP 36.4
[2019-01-29] MEDS: CLINDAMYCIN 150 MG CAPSULE 300 MG PO (18:12)
--- NOTE | 2019-01-29 18:12 | PC.NURSE ---
Per provider administer Oral ABX for patient to take at home at bedtime.
--- NOTE | 2019-03-02 13:33 | PC.NURSE ---
NS 1L Bolus completed at 1815. No complications
== END 2019-01-29 18:22 | disposition home or self-care (01) ==
PROVIDERS: Emergency Provider Emergency Medicine; Family Provider Family Medicine; PCP Student in an Organized Health Care Education/Training Program
DX: L03.115 Cellulitis of right lower limb (principal)
CPT/HCPCS: 36415; 36591; 80053; 82247; 83605; 84145; 85025; 85610; 85730; 87040; 93971; 96365; 96366; 99283; 99284

== ENCOUNTER 2019-01-30 07:03 | Emergency (ER) | payer OTHER, SELFPAY ==
[2019-01-30 07:38] VITALS: BP 144/73; PULSE 97; RESP 16; TEMP 36.3; O2SAT 98
--- NOTE | 2019-01-30 08:42 | ED.SKABFB ---
HPI - Skin/Abscess/Foreign Bdy General Chief complaint: Skin/Abscess/Foreign Body Stated complaint: returns for second IV antiobitics Time Seen by Provider: 01/30/19 07:21 Source: patient Mode of arrival: ambulatory Limitations: no limitations History of Present Illness HPI narrative: Patient returns to the emergency department for recheck and repeat dose of IV antibiotics after being seen yesterday for right lower extremity cellulitis. Patient states that his leg does not hurt as much as it did, and he has had no fevers overnight. There has been no progression of the redness past the skin markings made last night. He patient states that overall, he feels better. No systemic symptoms of illness. No other complaints this time. Patient was given IV antibiotics last night, and given oral clindamycin to take at home. Related Data Home Medications Medication Instructions Recorded Confirmed ResMed AirSense 10 CPAP #1 ea 01/05/19 01/21/19 aspirin 81 mg chewable tablet 81 mg PO DAILY 01/21/19 Previous Rx's Medication Instructions Recorded Syringes: 1cc Insulin Syringes #100 each 04/16/18 with [facility] blood glucose machine #1 ea 06/07/18 bd inulin pen needles [id number] See Rx Instructions .ROUTE 09/07/18 .COMPLEX #100 hydrochlorothiazide 12.5 mg tablet 12.5 mg PO QDAY #90 tab 10/26/18 insulin aspart U- 100 100 unit/mL 30 unit SUBCUT TID #15 ml 11/29/18 subcutaneous pen Glucose: Test Strips #100 each 12/06/18 atorvastatin 40 mg tablet 40 mg PO HS #90 tab 01/21/19 ferrous sulfate 325 mg (65 mg 325 mg PO DAILY #180 tab 01/21/19 iron) tablet insulin glargine (U- 100) 100 60 unit SUBCUT BEDTIME #6 vial 01/21/19 unit/mL subcutaneous solution clindamycin HCl 300 mg PO QID #40 cap 01/29/19 glipizide ER 10 mg tablet, 20 mg PO QDAY #180 tab 01/30/19 extended release 24 hr lisinopril 20 mg tablet 20 mg PO QDAY #90 tab 01/30/19 metformin ER 500 mg 1,000 mg PO BID #360 tab 01/30/19 tablet,extended release 24 hr Allergies Allergy/AdvReac Type Severity Reaction Status Date / Time No Known Drug Allergies Allergy Verified 01/30/19 20:04 Review of Systems Constitutional Denies chills, Denies fever(s), Denies lethargy and Denies weakness Eyes Denies change in vision, Denies eye discharge, Denies irritation and Denies loss of vision ENT Ears, Nose, Mouth, and Throat: Denies change in voice, Denies neck pain and Denies sore throat Cardiovascular Denies chest pain, Denies irregular heart rhythm, Denies lightheadedness, Denies palpitations, Denies dyspnea, Denies dyspnea on exertion and Denies orthopnea Respiratory Denies cough, Denies dyspnea, Denies dyspnea on exertion and Denies wheezing Gastrointestinal Gastrointestinal: Denies abdominal pain, Denies change in bowel habits, Denies diarrhea, Denies nausea and Denies vomiting Genitourinary Denies hematuria, Denies flank pain, Denies urinary incontinence and Denies urinary urgency Musculoskeletal Denies neck pain Comments: Swelling right lower extremity. Integumentary/Breasts Denies pruritus, Reports erythema, Denies rash and Denies wounds Neurologic Denies confusion, Denies loss of vision and Denies weakness Psychiatric Denies anxiety, Denies confusion, Denies depression, Denies homicidal ideation and Denies suicidal ideation Endocrine Denies palpitations Hematologic/Lymphatic Denies easy bruising Allergic/Immunologic Denies wheezing [facility] Medical History Morbid obesity with BMI of 45.0-49.9, adult (Chronic) Obstructive sleep apnea syndrome (Chronic 11/28/16) Diabetes (Chronic 1989) Hypercholesterolemia (Chronic Unknown) Hypertension (Chronic 2015) Low testosterone (Chronic Unknown) Sleep apnea (Chronic 2009) Social History marital status: details: zac Garcia, lives in [place]; has 1 daughter remaining at home household members: spouse and children lives independently: Yes caregiver/support person: No housing: house occupational status: employed Previous occupational history: Environmental Services Smoking Status: Former smoker quit status: quit date established alcohol intake: current substance use type: does not use Exam Initial Vital Signs Initial Vital Signs: Vital Signs Temperature 97.3 F L 01/30/19 07:38 Pulse Rate 97 H 01/30/19 07:38 Respiratory Rate 16 01/30/19 07:38 Blood Pressure 144/73 H 01/30/19 07:38 Pulse Oximetry 98 01/30/19 07:38 Const General: cooperative and well developed Nutritional Appearance: well nourished Orientation: alert, awake, oriented x3 and not confused [facility] Head: normocephalic and atraumatic Ears: external ears normal Nose: external nose normal and No nasal discharge Face and sinus: face symmetric and No dry mucous membranes Mouth: moist mucous membranes Teeth and gingiva: dentition normal Eyes General: appearance normal, both eyes and all related structures Eyelids: eyelids normal Conjunctivae: conjunctivae normal Sclera: sclerae normal Pupils: PERRL EOM: EOM intact bilaterally Neck Neck: normal visual inspection, trachea midline, No lymphadenopathy, No midline deformity and No JVD Lymphatic: No lymphedema Chest Chest: normal inspection of the chest Resp Effort & Inspection: normal respiratory effort, able to speak in complete sentences, no respiratory distress and no use of accessory muscles Auscultation: clear to auscultation bilaterally, no rales, no rhonchi and no wheezes Cardio Rate: regular rate Rhythm: regular rhythm Heart Sounds: no click, no gallops, no murmurs and no rubs Pulses: normal peripheral pulses GI Inspection: distended (Obese) Back/Spine/Pelvis Back: No CVA tenderness Cervical Spine: cervical ROM normal and No pain with cervical ROM Thoracic/Lumbar Spine: thoracic and lumbar spine normal to inspection Skin General: no rashes or lesions noted, No jaundice and No petechiae Other: Intense erythema noted of right lower extremity, mainly involving mid right tibial area and distally. Patient has intact distal pulses. A skin marking has been drawn around the proximal portion the patient's right lower leg. Erythema does not extend proximal to this line, and begins about 2 cm distal to the line. Intense erythema is about 4 cm distal to the line. No areas of induration or fluctuance are noted. No drainage. No wounds. No crepitus. Neuro General: alert, oriented x3, gait normal and no focal motor deficits Speech: speech normal Extrem General: full ROM, no clubbing, cyanosis or edema, no pedal edema and no calf tenderness Psych Appearance: well kempt Mental Status: mental status grossly normal Attitude: cooperative Thought Content: normal and suicidality Judgment: judgment good Course Course Narrative: The patient had overall improved since yesterday, and there is no evidence of progression of the cellulitis. I did order a dose of vancomycin for the patient here in the emergency department. We have discussed that he will most likely need 1 or 2 more doses of IV antibiotics, and then, as long as improvement continues, he can finish his course orally at home. Orders Ordered: Discontinued Medications Vancomycin HCl 1,500 mg/ (Sodium Chloride) 500 mls @ 333.333 mls/hr IV NOW ONE Stop: 01/30/19 08:43 Last Admin: 01/30/19 09:00 Dose: 333.333 mls/hr Vital Signs - 8 hr 01/30/19 07:38 Temperature 97.3 F L Pulse Rate 97 H Respiratory Rate 16 Blood Pressure 144/73 H Pulse Oximetry 98 MDM - Skin/Abscess/Foreign Bdy Medical Records Attestation: I reviewed the patient's medical records. Discharge Plan Departure Patient Disposition: Home Clinical Impression: Cellulitis of leg, right Discharge Date/Time: 01/30/19 11:17 Interventions: ED Discharge Assessment Last Done: 01/30/19 11:10 Instructions: DI for Cellulitis -- Adult Activity Restrictions/Additional Instructions: Please return to the emergency department at about 8:00 p.m. for a recheck and repeat dose of IV antibiotics. Please continue your home medications. Prescriptions: No Action Syringes: 1cc Insulin Syringes with [facility] .Route .MEDSUPPLY Qty: 100 RF: 3 blood glucose machine Qty: 1 RF: 0 bd inulin pen needles [id number] See Rx Instructions .ROUTE .COMPLEX Qty: 100 RF: 3 hydrochlorothiazide 12.5 mg tablet 12.5 mg PO QDAY Qty: 90 RF: 1 insulin aspart U-100 [Novolog Flexpen U-100 Insulin] 100 unit/mL insulin pen 30 unit SUBCUT TID Qty: 15 RF: 5 Glucose: Test Strips .Route .MEDSUPPLY Qty: 100 RF: 3 Lantus U-100 Insulin 100 unit/mL solution 60 unit SUBCUT BEDTIME Qty: 6 RF: 11 aspirin 81 mg tablet,chewable 81 mg PO DAILY RF: 0 atorvastatin 40 mg tablet 40 mg PO HS Qty: 90 RF: 3 ferrous sulfate [Iron (ferrous sulfate)] 325 mg (65 mg iron) tablet 325 mg PO DAILY Qty: 180 RF: 6 metformin [Glucophage XR] 500 mg tablet extended release 24 hr 1,000 mg PO BID Qty: 360 RF: 1 lisinopril 20 mg tablet 20 mg PO QDAY Qty: 90 RF: 1 glipizide 10 mg tablet extended release 24hr 20 mg PO QDAY Qty: 180 RF: 1 clindamycin HCl 300 mg capsule 300 mg PO QID Qty: 40 RF: 0 ResMed AirSense 10 CPAP Qty: 1 RF: 0 Referrals: Rich Ledezma MD [Primary Care Provider] - Stand Alone Forms: Work Release Note
[2019-01-30] MEDS: VANCOMYCIN 1,500 MG in SODIUM CHLORIDE 0.9% 500 ML 333.333 ML IV (09:00)
[2019-01-30 11:10] VITALS: BP 167/84; PULSE 98; RESP 17; TEMP 36.7; O2SAT 99
--- NOTE | 2019-03-03 14:24 | PC.NURSE ---
Vancomyacin infusion took 95 minutes to complete
== END 2019-01-30 11:17 | disposition home or self-care (01) ==
PROVIDERS: Emergency Provider Emergency Medicine; Family Provider Family Medicine; PCP Student in an Organized Health Care Education/Training Program
DX: L03.115 Cellulitis of right lower limb (principal)
CPT/HCPCS: 96365; 96366; 99282; 99284

== ENCOUNTER 2019-01-30 19:49 | Inpatient (IN) | payer OTHER, SELFPAY ==
[2019-01-30 20:04] VITALS: BP 168/82; PULSE 102; RESP 16; TEMP 38.4; O2SAT 99; BMI 44.6
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
[2019-01-30 21:47] LABS: Add Manual Diff / Slide Review NO; Basophils Absolute Auto 0 /uL (0-100); Basophils Percent Auto 0.4 % (0-2); Eosinophils Absolute Auto 100 /uL (0-450); Hematocrit 34.8 % (41-53); Hemoglobin 11.2 g/dL (13.5-17.5); Lymphocytes Absolute Auto 1400 /uL (1100-4500); Lymphocytes Percent Auto 10.1 % (25-40); Mean Corpuscular HGB Conc 32.2 % (30-36); Mean Corpuscular Hemoglobin 25.7 PG (26-34); Mean Corpuscular Volume 79.8 fL (80-100); Monocytes Absolute Auto 700 /uL (0-900); Monocytes Percent Auto 5.2 % (3-14); Neutrophils Absolute Auto 11500 /uL (1500-7000); Neutrophils Percent Auto 83.3 % (50-75); Platelet Count 270 X10^3/uL (150-400); Red Blood Cell Count 4.37 X10^6/uL (4.5-5.9); White Blood Cell Count 13.8 X10^3/uL (4.5-11.0)
[2019-01-30 21:52] LABS: Lactate (Lactic Acid) 1.1 mmol/L (0.7-2.1)
[2019-01-30 21:55] LABS: Alanine Aminotransferase 28 IU/L (21-72); Albumin Globulin Ratio 1.2 (1.0-2.8); Alkaline Phosphatase 65 U/L (38-126); Aspartate Aminotransferase 36 IU/L (17-59); Bilirubin Total 0.7 mg/dL (0.2-1.3); Blood Urea Nitrogen 14 mg/dL (9-20); Calcium 8.7 mg/dL (8.4-10.2); Carbon Dioxide 25 mmol/L (22-32); Chloride 98 mmol/L (98-107); Estimated Glomerular Filt Rate > 60.0 mL/min (>60); Globulin 3.4 g/dL (1.7-4.1); Glucose 285 mg/dL (70-100); HEMOLYSIS < 15 (0-50); Potassium 4.2 mmol/L (3.4-5.1); Sodium 134 mmol/L (137-145); Total Protein 7.4 g/dL (6.3-8.2)
[2019-01-30] MEDS: VANCOMYCIN 1,500 MG in SODIUM CHLORIDE 0.9% 500 ML 333.333 ML IV (22:04)
[2019-01-30 22:10] LABS: Procalcitonin 0.29 ng/mL (<0.5)
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
[2019-01-30 22:36] VITALS: BP 171/85; PULSE 108; RESP 18; O2SAT 97
[2019-01-30] MEDS: ONDANSETRON 4 MG/2 ML INJ IV (22:38)
[2019-01-30 22:48] VITALS: BMI 47.9
[2019-01-30 22:54] VITALS: BP 159/81; PULSE 106; RESP 20; TEMP 36.9; O2SAT 96
[2019-01-30 23:00] VITALS: O2SAT 96
--- NOTE | 2019-01-30 23:00 | P.HP_ITS ---
History of Present Illness Date Patient Seen: 01/30/19 Time Patient Seen: 22:50 Chief complaint: return for antibiotics Narrative: 53-year-old male with history of diabetes type 2 obesity hypertension presents with continuing cellulitis. He was seen here yesterday in the evening and given a dose of IV antibiotics another dose this morning and came back tonight for more antibiotics but then was noted to be febrile and has seems to have had progression of the erythema in the lower extremity. The redness started on Thursday is seemed to be sudden he did not note 1 particular area that was the initial point. When he finally noticed it the entire right lower extremity from the knee down was involved. He denies any injury to the area. No previous history of cellulitis no pre previous history of MRSA. He has relatively uncontrolled diabetes. No previous history of vascular disease. No history of diabetic ulcers. Patient History Medical History Morbid obesity with BMI of 45.0-49.9, adult (Chronic) Obstructive sleep apnea syndrome (Chronic 11/28/16) Diabetes (Chronic 1989) Hypercholesterolemia (Chronic Unknown) Hypertension (Chronic 2015) Low testosterone (Chronic Unknown) Sleep apnea (Chronic 2009) Social History marital status: details: zac Garcia, lives in [place]; has 1 daughter remaining at home household members: spouse and children lives independently: Yes caregiver/support person: No housing: house occupational status: employed Previous occupational history: Environmental Services Smoking Status: Former smoker quit status: quit date established alcohol intake: current substance use type: does not use Family & Social History Social History: household members spouse,children lives independently Yes caregiver/support person No Safety & Behavioral: Feels Safe in Current Yes Environment Tobacco & Substance use: Smoking Status Former smoker alcohol intake current alcohol intake frequency 0-2 drinks per day Substance Use Type does not use Meds Home Medications Medication Instructions Recorded Confirmed Type hydrochlorothiazide 12.5 mg tablet 12.5 mg PO QDAY #90 tab 10/26/18 01/30/19 Rx insulin aspart U- 100 100 unit/mL 30 unit SUBCUT TID #15 ml 11/29/18 01/30/19 Rx subcutaneous pen aspirin 81 mg chewable tablet 81 mg PO DAILY 01/21/19 01/30/19 History atorvastatin 40 mg tablet 40 mg PO HS #90 tab 01/21/19 01/30/19 Rx ferrous sulfate 325 mg (65 mg 325 mg PO DAILY #180 tab 01/21/19 01/30/19 Rx iron) tablet insulin glargine (U- 100) 100 60 unit SUBCUT BEDTIME #6 vial 01/21/19 01/30/19 Rx unit/mL subcutaneous solution glipizide ER 10 mg tablet, 20 mg PO QDAY #180 tab 01/30/19 01/30/19 Rx extended release 24 hr lisinopril 20 mg tablet 20 mg PO QDAY #90 tab 01/30/19 01/30/19 Rx metformin ER 500 mg 1,000 mg PO BID #360 tab 01/30/19 01/30/19 Rx tablet,extended release 24 hr Allergies Allergy/AdvReac Type Severity Reaction Status Date / Time No Known Drug Allergies Allergy Verified 01/30/19 20:04 Review of Systems Constitutional Constitutional: Reports system reviewed and no additional complaints, except as documented Eyes Eyes: Reports system reviewed; no additional complaints, except as documented ENT Ears, Nose, Mouth, and Throat: Yes system reviewed; no additional complaints, except as documented Cardiovascular Cardiovascular: Denies chest pain at rest and Denies chest pain with activity Respiratory Respiratory: Reports system reviewed and no additional complaints, except as documented Gastrointestinal Gastrointestinal: Reports system reviewed and no additional complaints, except as documented Genitourinary Genitourinary: Reports system reviewed and no additional complaints, except as documented Musculoskeletal Musculoskeletal: Reports system reviewed; no additional complaints, except as documented Integumentary/Breasts Skin/Breast: Reports erythema and Reports rash Neurologic Neurologic: Reports system reviewed and no additional complaints, except as documented Psychiatric Psychiatric: Reports system reviewed and no additional complaints, except as documented Endocrine Endocrine: Reports system reviewed and no additional complaints, except as documented Hematologic/Lymphatic Hematologic/Lymphatic: Reports system reviewed and no additional complaints, except as documented Allergic/Immunologic Allergic/Immunologic: Reports system reviewed and no additional complaints, except as documented Exam Vital Signs (past 8 hours): - 01/30/19 20:04 01/30/19 22:36 Temperature 101.1 F H Pulse Rate 102 H 108 H Respiratory Rate 16 18 Blood Pressure 168/82 H Blood Pressure [Left Arm] 171/85 H Pulse Oximetry 99 97 Oxygen Delivery Method Room Air Narrative Exam Narrative: Pleasant middle-aged male obese no acute distress sitting up on the side of the bed. He is a little bit tachycardic fever up to 101 earlier in the ER visit this evening. HEENT exam unremarkable oropharynx clear Neck is supple no bruits no JVD Lungs Clear to auscultation Heart regular rhythm Abdomen obese nontender Pulses 2+ and symmetrical Lower extremities the right lower extremity 2+ edema with diffuse erythema from the foot up to just below the knee warmth also noted. The left lower extremity fairly normal there is no chronic stasis dermatitis fairly normal color. Neuro exam awake alert oriented x3 no focal deficits Objective Labs Result Diagrams: 01/30/19 21:34 01/30/19 21:34 Labs: Laboratory Results - last 24 hr 01/30/19 01/30/19 01/30/19 21:34 21:34 21:34 WBC 13.8 H RBC 4.37 L Hgb 11.2 L Hct 34.8 L MCV 79.8 L MCH 25.7 L MCHC 32.2 RDW 15.0 H Plt Count 270 Neut % (Auto) 83.3 H Lymph % (Auto) 10.1 L [place] % (Auto) 5.2 Eos % (Auto) 1.0 L Baso % (Auto) 0.4 Neut # (Auto) 14346 H Lymph # (Auto) 1400 [place] # (Auto) 700 Eos # (Auto) 100 Baso # (Auto) 0 Sodium 134 L Potassium 4.2 Chloride 98 Carbon Dioxide 25 BUN 14 Creatinine 0.70 Estimated GFR > 60.0 BUN/Creatinine Ratio 20.0 Glucose 285 H Lactate Calcium 8.7 Total Bilirubin 0.7 AST 36 ALT 28 Alkaline Phosphatase 65 Total Protein 7.4 Albumin 4.0 Globulin 3.4 Albumin/Globulin Ratio 1.2 Procalcitonin 0.29 01/30/19 21:34 WBC RBC Hgb Hct MCV MCH MCHC RDW Plt Count Neut % (Auto) Lymph % (Auto) [place] % (Auto) Eos % (Auto) Baso % (Auto) Neut # (Auto) Lymph # (Auto) [place] # (Auto) Eos # (Auto) Baso # (Auto) Sodium Potassium Chloride Carbon Dioxide BUN Creatinine Estimated GFR BUN/Creatinine Ratio Glucose Lactate 1.1 Calcium Total Bilirubin AST ALT Alkaline Phosphatase Total Protein Albumin Globulin Albumin/Globulin Ratio Procalcitonin Assessment & Plan Assessment & Plan narrative: One. Right lower extremity cellulitis started Thursday he has received 3 doses of IV antibiotics he has persistent fever does not seem to be improving here initially. I think at this point a admission to observation status is warranted with aggressive IV antibiotic treatment. I think he is at low risk for MRSA with and would treat him for methicillin sensitive Staph aureus or strep infection with cefazolin IV at 2 g q.8 hours. I would anticipate that he should respond favorably and within 24 hr may be able to be discharged home if there is clinical improvement and if the fever goes away. White count was 13 today it was 15 yesterday. So there is a mild white count elevation. If he fails to respond to the initial antibiotics then he would would probably warrant inpatient admission and longer treatment. But that decision can be made tomorrow upon rounding. 2. Diabetes type 2 relatively poor control continue insulin regimen he was recently placed on a sliding scale as needed supplemental insulin in addition to his long-acting and mealtime insulin. Plan to continue with insulin. I will hold the glipizide for now I really do not think that is actually needed at this point with the high doses of insulin he is on is probably not getting any benefit from the glipizide and would be in favor of probably stopping that. If he needs better control of his diabetes would suggest something to help with i nsulin sensitivity such as Actos. He is on metformin that will continue. Dietary changes weight loss and increased activity are recommended also. 3. Hypertension somewhat high today plan to resume his oral meds and watch this carefully. Time Spent With Patient Time with patient: Greater than 35 minutes
[2019-01-31] VITALS (15 sets, daily range): BP systolic 122–154; BP diastolic 56–81; PULSE 78–96; RESP 16–19; TEMP 36.8–37.4; O2SAT 97–99
[2019-01-31] MEDS: ATORVASTATIN 20 MG TABLET 40 MG PO ×2 (00:21→20:23)
[2019-01-31] MEDS: INSULIN GLARGINE 60 UNIT 60 EACH SUBCUT ×2 (00:26→20:23)
[2019-01-31] MEDS: ENOXAPARIN 40 MG/0.4 ML SYRINGE SUBCUT ×3 (00:30→20:22)
[2019-01-31] MEDS: ACETAMINOPHEN 325 MG TABLET 650 MG PO ×2 (00:33→20:27)
[2019-01-31] MEDS: CEFAZOLIN 2 GM/100 ML FROZ.PIGGY IV ×4 (00:33→22:21)
--- NOTE | 2019-01-31 08:42 | CM.DANOTE ---
Discharge Planning/Care Management DCP: assessment: case received, EMR reviewed and met with pt. Introduced self and role. Pt is a 53 year old male who admitted to care of hospitalist team late last night. PCP: Dr. Rich Ledezma, just established with him. Payer: [employer] Adam Pt notes he had hoped to d/c today as per Dr. Reed's plan but the leg is really not looking very good yet. He is aware that Dr. Moore will be seeing him today. Will check in and follow prn. Freq: Status: Active Protocol: Document 01/31/19 08:40 ITV (Rec: 01/31/19 08:41 ITV [id number]) Discharge Planning Assessment Advance Directives? No Advance Directives on File No History Provided By Patient Medical Record Prior Living Arrangements House Household Members spouse children Independent with ADL's Yes Is patient alert and oriented? Yes Whiteboard Updated in Patient Room with Yes name and ext. # of Clothing Worker Review Status In Process Next Review Type Continued Stay Review
[2019-01-31] MEDS: ASPIRIN 81 MG TAB PO (09:57)
[2019-01-31] MEDS: LISINOPRIL 20 MG TABLET PO (09:57)
[2019-01-31] MEDS: METFORMIN XR 500 MG TABLET 1000 MG PO ×2 (09:58→17:15)
[2019-01-31] MEDS: hydroCHLOROthiazide 12.5 MG CAPSULE PO (09:59)
[2019-01-31] MEDS: INSULIN ASPART 100 UNIT/ML INSULN PEN 30 UNIT SUBCUT ×3 (10:09→17:11)
[2019-01-31] MEDS: INSULIN ASPART 100 UNIT/ML INSULN PEN SUBCUT ×3 (10:09→17:12)
[2019-01-31] MEDS: INFLUENZA VACCINE 0.5 ML SYRINGE IM (12:38)
[2019-01-31 14:34] LABS: Hemoglobin A1C% w Est Avg Glu 9.3 % (4.0-6.0)
--- NOTE | 2019-01-31 15:38 | PC.NURSE ---
Am shift Pt is a/o x3, up to BR with SBA. Denies pain. Erythema improved and receeding at start of shift. Enc elevation of BLE, Pt not 100% cooperative with this. Numerous visitors. No pain. PP+ present. At end of shift, noted increased erythema to LLE as well. Legs elevated. Call light in reach.
--- NOTE | 2019-01-31 16:49 | PM.PN.1 ---
Subjective Date Patient Seen: 01/31/19 Interval history: The patient is a 53-year-old male with morbid obesity, obstructive sleep apnea, right lower extremity cellulitis who was admitted to the hospital for progressive swelling and redness of the right lower extremity. Area of his leg has been marked. He has had significant improvement over night in the lower extremity cellulitis. Unfortunately he continues to have significant lower extremity edema in addition to redness. Patient feels like symptoms are improving. Exam Vital Signs (past 8 hours): - 01/31/19 09:57 01/31/19 12:00 01/31/19 15:40 Temperature 98.3 F Pulse Rate 78 90 Respiratory Rate 18 Blood Pressure 122/66 154/67 H Pulse Oximetry 98 99 01/31/19 15:45 01/31/19 16:30 Temperature 99.4 F 98.3 F Pulse Rate 92 H Respiratory Rate 19 Blood Pressure 152/78 H Pulse Oximetry 98 Oxygen Delivery Method Room Air Oxygen Flow Rate 0 Narrative Exam Narrative: Pleasant male resting comfortably in no acute distress lungs: Clear to auscultation cardiac exam: Regular rate and rhythm normal S1 and S2 abdomen: Soft and nontender extremities: 2+ bilateral edema. Right lower extremity with significant erythema from the ankle up to 2 in below the knee. The area is warm and indurated. There is no area of skin breakdown. There appears to be some improvement compared to yesterday. Objective Labs Result Diagrams: 01/30/19 21:34 01/30/19 21:34 Labs: Laboratory Results - last 24 hr 01/30/19 01/30/19 01/30/19 21:34 21:34 21:34 WBC 13.8 H RBC 4.37 L Hgb 11.2 L Hct 34.8 L MCV 79.8 L MCH 25.7 L MCHC 32.2 RDW 15.0 H Plt Count 270 Neut % (Auto) 83.3 H Lymph % (Auto) 10.1 L [place] % (Auto) 5.2 Eos % (Auto) 1.0 L Baso % (Auto) 0.4 Neut # (Auto) 60461 H Lymph # (Auto) 1400 [place] # (Auto) 700 Eos # (Auto) 100 Baso # (Auto) 0 Sodium 134 L Potassium 4.2 Chloride 98 Carbon Dioxide 25 BUN 14 Creatinine 0.70 Estimated GFR > 60.0 BUN/Creatinine Ratio 20.0 Glucose 285 H Hemoglobin A1c Lactate Calcium 8.7 Total Bilirubin 0.7 AST 36 ALT 28 Alkaline Phosphatase 65 Total Protein 7.4 Albumin 4.0 Globulin 3.4 Albumin/Globulin Ratio 1.2 Procalcitonin 0.29 01/30/19 01/31/19 21:34 14:10 WBC RBC Hgb Hct MCV MCH MCHC RDW Plt Count Neut % (Auto) Lymph % (Auto) [place] % (Auto) Eos % (Auto) Baso % (Auto) Neut # (Auto) Lymph # (Auto) [place] # (Auto) Eos # (Auto) Baso # (Auto) Sodium Potassium Chloride Carbon Dioxide BUN Creatinine Estimated GFR BUN/Creatinine Ratio Glucose Hemoglobin A1c 9.3 H Lactate 1.1 Calcium Total Bilirubin AST ALT Alkaline Phosphatase Total Protein Albumin Globulin Albumin/Globulin Ratio Procalcitonin Assessment & Plan (1) Cellulitis of leg, right: Problem details: Cellulitis of the right lower extremity, present on admission patient appears to be making significant improvement with current therapy. Continue antibiotics and leg elevation at this time. Current visit: Yes Status: Acute (2) Iron deficiency anemia: Problem details: Iron deficiency anemia, present on admission will continue the iron sulfate. Current visit: No Status: Chronic (3) Morbid obesity with BMI of 45.0-49.9, adult: Current visit: No Status: Chronic (4) Essential hypertension: Problem details: Essential hypertension, chronic, present on admission will continue his usual outpatient Treatment Current visit: No Status: Chronic (5) Pure hypercholesterolemia: Problem details: will continue statin Current visit: No Status: Chronic Quality VTE Deep Vein Thrombosis/Pulmonary Embolism Present on Admission: Yes
--- NOTE | 2019-01-31 18:47 | PC.NURSE ---
Addendum entered by Elva Tineo R.N. 01/31/19 20:59: pt has been borderline tachycardic, has spiked low grade fevers. denies pain that he had initially had when he was first battling the cellulites. redness has crept below low line on right foot. does not look like it has gone out of the boundary by the knee, but is approaching it in areas. Original Note: 1500- assumed care of pt from outgoing shift. Pt awake and alert. pt uses call light. pt has family at bedside. cooperative and compliant with nursing staff. PT self in room. uses his own shoes (good support and gripped bottom). leg looks about the same as it did last night. redness slightly outside of foot margin (closer to toes now than it was last night). will continue to monitor pt for safety.
[2019-01-31] MEDS: SODIUM CHLORIDE 0.9% FLUSH 10 ML IV ×2 (20:27→22:22)
[2019-01-31] MEDS: SODIUM CHLORIDE 0.9% 250 ML 21 ML IV (22:22)
[2019-02-01] VITALS (8 sets, daily range): BP systolic 143–154; BP diastolic 66–80; PULSE 83–97; RESP 16–19; TEMP 36.4–37.6; O2SAT 96–99
[2019-02-01] MEDS: CEFAZOLIN 2 GM/100 ML FROZ.PIGGY IV ×3 (06:50→22:28)
[2019-02-01] MEDS: LISINOPRIL 20 MG TABLET PO (08:26)
[2019-02-01] MEDS: METFORMIN XR 500 MG TABLET 1000 MG PO (08:26)
[2019-02-01] MEDS: hydroCHLOROthiazide 12.5 MG CAPSULE PO (08:26)
[2019-02-01] MEDS: SODIUM CHLORIDE 0.9% FLUSH 10 ML IV ×2 (08:27→21:03)
[2019-02-01] MEDS: ASPIRIN 81 MG TAB PO (08:27)
[2019-02-01] MEDS: ENOXAPARIN 40 MG/0.4 ML SYRINGE SUBCUT ×2 (08:27→20:59)
[2019-02-01] MEDS: INSULIN ASPART 100 UNIT/ML INSULN PEN 30 UNIT SUBCUT ×3 (08:28→17:31)
[2019-02-01] MEDS: INSULIN ASPART 100 UNIT/ML INSULN PEN SUBCUT ×4 (08:29→21:00)
[2019-02-01] MEDS: INSULIN ASPART 100 UNIT/ML 10ML VIAL 32 UNIT SUBCUT (10:01)
--- NOTE | 2019-02-01 13:22 | P.PN_ITS ---
Subjective Date Patient Seen: 02/01/19 Interval history: the patient is a 53-year-old male with a history of type 2 diabetes on insulin which is poorly controlled, with hypertension hyperlipidemia as well. He is admitted to the hospital for cellulitis involving the right lower extremity. The patient has been ambulating significantly since he has been here. The right lower extremity continues to be somewhat indurated warm and red. He also has evidence of venous insufficiency in both lower extremities. He has some redness on the left leg as well. There are no exudates. There are no open lesions. Despite ambulating his right lower extremity appears to be improving somewhat. Patient had hemoglobin A1c which came back at 9.3. He currently is being managed with 60 units of Lantus glipizide and metformin. Medications will be adjusted to improve his diabetic control. Exam Vital Signs (past 8 hours): - 02/01/19 07:46 02/01/19 11:00 Temperature 97.8 F 97.5 F L Pulse Rate 83 88 Respiratory Rate 16 16 Blood Pressure 147/79 H 148/75 H Pulse Oximetry 98 98 Oxygen Delivery Method Room Air Oxygen Flow Rate 0 Narrative Exam Narrative: Pleasant obese male in no obvious distress lungs: Clear to auscultation cardiac exam: Regular rate rhythm normal S1-S2 abdomen: Soft nontender nondistended extremities: Right lower extremity beefy red and warm. Mild improvement in lower extremity cellulitis. There is some erythema in the left lower extremity as well. Objective Labs Result Diagrams: 01/30/19 21:34 01/30/19 21:34 Labs: Laboratory Results - last 24 hr 01/31/19 14:10 Hemoglobin A1c 9.3 H Assessment & Plan (1) Cellulitis of leg, right: Problem details: Cellulitis of the right lower extremity, present on admission patient appears to be making significant improvement with current therapy. Continue antibiotics and leg elevation at this time. Current visit: Yes Status: Acute (2) Type 2 diabetes mellitus without complication, with long-term current use of insulin: Problem details: Patient's metformin will be discontinued. Will continue to increase his insu rip as his hemoglobin A1c is elevated and glucose control is suboptimal. Current visit: No Status: Chronic (3) Pure hypercholesterolemia: Problem details: will continue statin Current visit: No Status: Chronic (4) Essential hypertension: Problem details: Essential hypertension, chronic, present on admission will continue his usual outpatient Treatment Current visit: No Status: Chronic (5) Morbid obesity with BMI of 45.0-49.9, adult: Current visit: No Status: Chronic (6) Obstructive sleep apnea syndrome: Problem details: Chronic present on admission no further therapy indicated at this time. Current visit: No Status: Chronic Assessment & Plan narrative: Hopefully with leg elevation and continued antibiotic treatment the patient be switched to oral agents tomorrow. Quality VTE Deep Vein Thrombosis/Pulmonary Embolism Present on Admission: Yes
[2019-02-01] MEDS: ATORVASTATIN 20 MG TABLET 40 MG PO (20:59)
[2019-02-01] MEDS: INSULIN GLARGINE 100 UNIT/ML 3ML PEN 35 UNIT SUBCUT (21:00)
--- NOTE | 2019-02-01 23:05 | PC.NURSE ---
loyd barfield- pt awake and alert. cooperative with care. legs are less swollen. but reddened. less hot to touch. swelling. redness to right ankle is greater today than it was yesterday. pt agrees. handouts given to pt about cellulites and venous stasis. Pt appreciative. pt uses call [place]. self in room, ambulates steady gait to br. pt uses call zuleta. will continue to monitor pt for safety. discussed new lantus regimen and pt compliant and eager to try something different.
[2019-02-02 00:43] VITALS: BP 138/75; PULSE 97; RESP 20; TEMP 36.3; O2SAT 96
[2019-02-02 01:00] VITALS: O2SAT 96
[2019-02-02 04:31] VITALS: BP 121/62; PULSE 85; RESP 20; TEMP 36.6; O2SAT 100
[2019-02-02] MEDS: CEFAZOLIN 2 GM/100 ML FROZ.PIGGY IV (06:47)
[2019-02-02] MEDS: INSULIN ASPART 100 UNIT/ML INSULN PEN SUBCUT ×2 (07:52→11:59)
[2019-02-02] MEDS: INSULIN ASPART 100 UNIT/ML INSULN PEN 30 UNIT SUBCUT ×2 (07:52→11:57)
[2019-02-02] MEDS: INSULIN GLARGINE 100 UNIT/ML 3ML PEN 35 UNIT SUBCUT (07:53)
[2019-02-02 07:55] VITALS: BP 144/78; PULSE 78; RESP 16; TEMP 36.6; O2SAT 99
[2019-02-02] MEDS: hydroCHLOROthiazide 12.5 MG CAPSULE PO (07:55)
[2019-02-02] MEDS: LISINOPRIL 20 MG TABLET PO (07:55)
[2019-02-02] MEDS: ASPIRIN 81 MG TAB PO (07:55)
[2019-02-02] MEDS: ENOXAPARIN 40 MG/0.4 ML SYRINGE SUBCUT (07:55)
--- NOTE | 2019-02-02 11:33 | PM.DS.1 ---
History of Present Illness Date Patient Seen: 02/02/19 Chief complaint: return for antibiotics Narrative: 53-year-old male with history of diabetes type 2 obesity hypertension presents with continuing cellulitis. He was seen here yesterday in the evening and given a dose of IV antibiotics another dose this morning and came back tonight for more antibiotics but then was noted to be febrile and has seems to have had progression of the erythema in the lower extremity. The redness started on Thursday is seemed to be sudden he did not note 1 particular area that was the initial point. When he finally noticed it the entire right lower extremity from the knee down was involved. He denies any injury to the area. No previous history of cellulitis no pre previous history of MRSA. He has relatively uncontrolled diabetes. No previous history of vascular disease. No history of diabetic ulcers. Discharge Providers Date of admission: 01/30/19 22:31 Discharge Date: 02/02/19 Primary care physician: Rich Ledezma MD Consults: 01/30/19 22:45 Consult to Respiratory Therapy Evaluate & Treat Comment: CPAP at night patient has home machine Physician Instructions: Evaluate and treat Discharge provider: Geovanna Moore MD Summary Discharge Diagnosis: Lower Extremity Cellulitis, present on admission Bilateral Venous Insufficiency,present on admission Morbid obesity Type 2 diabetes Mellitus, poorly controlled Hyperlipidemia Hypertension hyponatremia, mild Hospital Course: Patient was admitted to the hospital for inpatient treatment of cellulitis. He had started oral antibiotics but failed outpatient treatment. His right leg was swollen, warm, and red. He was treated with Cefazolin with excellent response. Patient had no difficulty with the antibiotics, he had no shortness of breath, nausea or pain. As his legs were improving nicely he will be switched to oral antibiotics and discharged home. The patient will follow up with next week. Patient was discharged home. REcommend follow up with wound care regarding venous insufficiency as an outpatient. Status at Discharge Cognitive/behavioral status at discharge: oriented Functional status at discharge: independent ambulation Overall status at discharge: patient is back to baseline Time Spent with Patient Less than 30 minutes Exam Vital Signs (past 8 hours): - 02/02/19 04:31 02/02/19 07:55 Temperature 97.8 F 97.8 F Pulse Rate 85 78 Respiratory Rate 20 16 Blood Pressure 121/62 144/78 H Pulse Oximetry 100 99 Oxygen Delivery Method Room Air Oxygen Flow Rate 0 Narrative Exam Narrative: Pleasant obese male in no acute distress Lungs: clear to auscultation CV: RRR nl SlS2 Abd: soft/ non tender/ non distended Ext: 2+ pitting edema bilaterally, erythema of the right leg, improved, decreased warmth Objective Labs Result Diagrams: 01/30/19 21:34 01/30/19 21:34 Discharge Plan Discharge Plan Discharge Problem: Cellulitis of leg, right Patient Disposition: Home Discharge comment: Outpatient follow up with wound care regarding treatment for venous insufficiency Discharge Med Rec/Prescriptions Prescriptions: New cephalexin [Keflex] 500 mg capsule 500 mg PO QID 7 Days Qty: 28 RF: 0 Continued hydrochlorothiazide 12.5 mg tablet 12.5 mg PO QDAY Qty: 90 RF: 1 Lantus U-100 Insulin 100 unit/mL solution 60 unit SUBCUT BEDTIME Qty: 6 RF: 11 aspirin 81 mg tablet,chewable 81 mg PO BEDTIME RF: 0 atorvastatin 40 mg tablet 40 mg PO HS Qty: 90 RF: 3 ferrous sulfate [Iron (ferrous sulfate)] 325 mg (65 mg iron) tablet 325 mg PO DAILY Qty: 180 RF: 6 metformin [Glucophage XR] 500 mg tablet extended release 24 hr 1,000 mg PO BID Qty: 360 RF: 1 lisinopril 20 mg tablet 20 mg PO QDAY Qty: 90 RF: 1 glipizide 10 mg tablet extended release 24hr 20 mg PO QDAY Qty: 180 RF: 1 insulin aspart U-100 100 unit/mL Insulin Pen 30 unit SUBCUT ACHS RF: 0 Follow up/Referrals: Rich Ledezma MD [Primary Care Provider] - Provider Discharge Instructions Diet: Carb-consistent/Diabetic, Low-sodium and Low-cholesterol Activity: as tolerated, elevate right leg most of the day Visit Report/Discharge Packet Instructions: DI for Cellulitis -- Adult, Cellulitis, DI for Edema Due to Venous Stasis, Venous Stasis Ulcer Discharge Data Primary Care Provider: Rich Ledezma Attending Provider: Adonay Reed Admit Date/Time: 01/30/19 22:31 Quality VTE Deep Vein Thrombosis/Pulmonary Embolism Present on Admission: Yes
[2019-02-02] MEDS: SODIUM CHLORIDE 0.9% FLUSH 10 ML IV (11:57)
[2019-02-02 12:00] VITALS: BP 142/62; PULSE 81; RESP 17; TEMP 36.5; O2SAT 98
== END 2019-02-02 13:58 | disposition home or self-care (01) | DRG 603 ==
LOC: ED 22:23 → AC 01-31 11:24
PROVIDERS: Internal Medicine; Admitting Provider Internal Medicine; Emergency Provider Nurse Practitioner Family; Family Provider Family Medicine; PCP Student in an Organized Health Care Education/Training Program; Visit Provider Internal Medicine
DX: L03.115 Cellulitis of right lower limb (principal); Z68.42 Body mass index [BMI] 45.0-49.9, adult; E87.1 Hypo-osmolality and hyponatremia; E11.65 Type 2 diabetes mellitus with hyperglycemia; E66.01 Morbid (severe) obesity due to excess calories; G47.33 Obstructive sleep apnea (adult) (pediatric); I10 Essential (primary) hypertension; E78.00 Pure hypercholesterolemia, unspecified; Z87.891 Personal history of nicotine dependence; Z79.4 Long term (current) use of insulin; D50.9 Iron deficiency anemia, unspecified; I87.2 Venous insufficiency (chronic) (peripheral)
CPT/HCPCS: 36415; 80053; 82247; 82962; 83036; 83605; 84145; 85025; 85610; 85730; 87040; 90471; 90656; 93971; 96365; 96366; 96375; 99283; 99284; J0690; J1650; J2405; Q2038

== ENCOUNTER → 2019-02-04 13:34 | Outpatient (CLI) | payer OTHER, SELFPAY ==
[2019-01-30 22:48] VITALS: BMI 47.9
[2019-02-04 15:05] LABS: Cholesterol 128 mg/dL (140-199); HDL Cholesterol 29 mg/dL (40-60); LDL Cholesterol Calculated 73 mg/dL (<100); Triglycerides 129 mg/dL (35-150)
[2019-02-04 15:29] LABS: HEMOLYSIS 15 (0-50); Iron 69 ug/dL (49-181)
[2019-02-04 15:41] LABS: Percent Iron Saturation 20 % (20-50); Total Iron Binding Capacity 348 ug/dL (261-462); Transferrin 269 mg/dL (206-381)
[2019-02-04 15:58] LABS: Creatinine Urine Random 84.2 mg/dL
[2019-02-04 16:01] LABS: Microalbumin Urine Random 6.4 mg/dL (0-1.6)
[2019-02-04 16:27] LABS: Vitamin D 25 Hydroxy (D3) 41.2 ng/mL (30.0-100.0)
[2019-02-09 06:55] LABS: Testosterone Free 17.1 pg/mL (35.0-155.0); Testosterone Total 106 ng/dL (250-1100)
== END ==
PROVIDERS: PCP Student in an Organized Health Care Education/Training Program; Visit Provider Student in an Organized Health Care Education/Training Program
DX: E11.9 Type 2 diabetes mellitus without complications (principal); E66.01 Morbid (severe) obesity due to excess calories; E78.00 Pure hypercholesterolemia, unspecified; I10 Essential (primary) hypertension; E55.9 Vitamin D deficiency, unspecified; E61.1 Iron deficiency; R53.83 Other fatigue; Z79.4 Long term (current) use of insulin; Z68.42 Body mass index [BMI] 45.0-49.9, adult
CPT/HCPCS: 36415; 80061; 82043; 82306; 82570; 83540; 83550; 84402; 84403